=== PATIENT | male | born 1955 | race Caucasian/White ===

== ENCOUNTER → 2022-08-10 10:28 | Outpatient (CLI) | payer MEDICARE, SELFPAY ==
--- NOTE | ~2022-08-10 | XR_ITS ---
Lumbosacral Spine: AP and lateral views Clinical History: Pain Findings: 12 degree levoscoliosis noted. There is advanced facet arthropathy at L3-L4, L4-L5, L5-S1. There is mild degenerative disc narrowing at these levels. The intervertebral disc spaces are preserv ed. The sacroiliac joints are normally outlined. Impression: Moderate degenerative spondylosis at the lower lumbar spine, as detailed above. 12 degree levoscoliosis. Reviewed, dictated and finalized at location . Impression: Moderate degenerative spondylosis at the lower lumbar spine, as detailed above. 12 degree levoscoliosis.
== END ==
PROVIDERS: PCP Family Medicine; Visit Provider Nurse Practitioner Family
DX: M54.50 Low back pain, unspecified (principal); M47.816 Spondylosis without myelopathy or radiculopathy, lumbar region; M41.9 Scoliosis, unspecified; R20.0 Anesthesia of skin; R20.2 Paresthesia of skin
CPT/HCPCS: 72100

== ENCOUNTER 2022-10-13 10:01 | Outpatient (CLI) | payer MEDICARE, SELFPAY ==
--- NOTE | ~2022-10-13 | CT_ITS ---
Non-contrast Head CT History: Slurred speech COMPARISON: 02/28/2018 Technique: Axial non-contrast imaging of the brain was performed. Dose reduction technique was used on this scan by utilizing automated exposure control and iterative reconstruction technique. The dose -length product (DLP) was 681.00 mGy-cm. Findings: There is no evidence of intracranial hemorrhage, mass lesion, or acute infarct. Chronic le ft parietal lobe infarct noted.. The ventricles and subarachnoid spaces are normal in size. The singh varium appears normal. The visualized paranasal sinuses and mastoid air cells are clear. Impression: No acute abnormality. Chronic left parietal lobe infarct. Reviewed, dictated and finalized at location . Impression: No acute abnormality. Chronic left parietal lobe infarct.
== END 2022-10-13 10:02 | disposition home or self-care (01) ==
PROVIDERS: PCP Family Medicine; Visit Provider Nurse Practitioner Family
DX: I48.0 Paroxysmal atrial fibrillation (principal); R20.0 Anesthesia of skin; R53.1 Weakness; R47.81 Slurred speech; Z86.73 Personal history of transient ischemic attack (TIA), and cerebral infarction without residual deficits
CPT/HCPCS: 70450

== ENCOUNTER 2022-10-21 13:29 | Outpatient (CLI) | payer MEDICARE, SELFPAY ==
--- NOTE | ~2022-10-21 | MR_ITS ---
EXAMINATION: MR brain/brain stem wo con DATE: 10/21/2022 14:34 INDICATION: Other cerebral infarction. TECHNIQUE: Magnetic resonance imaging (MRI) of the brain and brainstem was performed without intraven ous contrast. COMPARISON: Head CT 10/13/2022, 02/28/2018 FINDINGS: There is an old infarct in left temporal parietal occipital region with old blood products and cortical calcifications. There are small infarcts in left frontoparietal region, likely subacute. There is no abnormal mass lesion. There are scattered areas of nonspecific increased T2-weighted sig nal intensity in the cerebral white matter. The ventricles are normal in size. There is mild mucosal thickening in the paranasal sinuses. The orbits are normal. The mastoid air cells are normal. IMPRESSION: 1. Small infarcts in left frontoparietal region, likely subacute. 2. Old infarct in left temporal parietal occipital region. 3. Mild nonspecific cerebral white matter disease, which likely represents chronic small vessel ische jasmyn disease. Reviewed, dictated and finalized at location A. IMPRESSION: 1. Small infarcts in left frontoparietal region, likely subacute. 2. Old infarct in left temporal parietal occipital region. 3. 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
== END 2022-10-21 13:30 | disposition home or self-care (01) ==
PROVIDERS: PCP Family Medicine; Visit Provider Nurse Practitioner Family
DX: I63.89 Other cerebral infarction (principal); R93.0 Abnormal findings on diagnostic imaging of skull and head, not elsewhere classified
CPT/HCPCS: 70551

== ENCOUNTER 2023-01-23 00:49 | Day surgery (SDC) | payer MEDICARE, SELFPAY ==
[2023-01-20 12:55] VITALS: BMI 33.7
[2023-01-23] VITALS (9 sets, daily range): BP systolic 141–160; BP diastolic 88–113; PULSE 78–98; RESP 13–19; TEMP 36.4; O2SAT 94–98; BMI 32.7
[2023-01-23 07:24] LABS: Basophils Percent Auto 0.4 % (0.2-1.2); Eosinophils Absolute Auto 0.2 K/mm3 (0-0.3); Eosinophils Percent Auto 4.7 % (0-4.4); Hematocrit 47.6 % (42.0-52.0); Hemoglobin 15.9 g/dL (14.0-18.0); Immature Granulocyte Absolute 0.01 K/mm3 (0.00-0.031); Immature Granulocyte Percent A 0.2 % (0-0.5); Lymphocytes Absolute Auto 1.15 K/mm3 (0.9-3.2); Lymphocytes Percent Auto 23.5 % (18.3-44.2); Mean Corpuscular HGB Conc 33.4 g/dl (32-36); Mean Corpuscular Hemoglobin 31.2 pg (26-34); Mean Corpuscular Volume 93.3 fl (80-100); Mean Platelet Volume 9.9 fl (7.4-10.4); Monocytes Absolute Auto 0.5 K/mm3 (0.1-0.6); Monocytes Percent Auto 9.2 % (2.6-8.5); Platelet Count Result 172 k/mm3 (150-375); Red Cell Distribution Width 11.8 % (11.5-14.5); White Blood Count 4.9 K/mm3 (4.5-10.0)
[2023-01-23 07:29] LABS: Prothrombin Time 13.6 Seconds (11.1-14.7)
[2023-01-23 07:33] LABS: Anion Gap 11 mmol/L (8-16); Blood Urea Nitrogen 15 mg/dL (9-20); Calcium 9.3 mg/dL (8.4-10.2); Carbon Dioxide 26 mmol/L (22-30); Chloride 98 mmol/L (98-107); Estimated CRCL calculation 110 ml/min; Estimated Glomerular Filt Rate > 60; Glucose 303 mg/dL (65-110); Potassium 4.4 mmol/L (3.4-5.0); Sodium 135 mmol/L (137-145)
--- NOTE | 2023-01-23 10:07 | WPDMODSED ---
Moderate Sedation Note-Pt Data Patient Data Diagnosis: atrial fibrillation /persistent left ventricular systolic dysfunction diabetes Present Complaint: upper extremity weakness and heaviness Procedure to be performed/Plan: left heart catheterization Allergies Allergy/AdvReac Type Severity Reaction Status Date / Time No Known Allergies Allergy Verified 01/23/23 07:26 Home Medications Medication Instructions Recorded Confirmed Type hydrochlorothiazide 25 mg tablet 25 mg PO DAILY #90 tabs 03/17/22 01/20/23 Rx glimepiride 1 mg tablet 1 mg PO BID #180 tabs 05/17/22 01/20/23 Rx rosuvastatin 40 mg tablet (Crestor) 40 mg PO DAILY #90 tabs 07/16/22 01/20/23 Rx gabapentin 100 mg capsule 100 mg PO QHS #90 caps 10/10/22 01/23/23 Rx empagliflozin 25 mg tablet 25 mg PO DAILY #90 tabs 01/08/23 01/23/23 Rx (Jardiance) lisinopril 10 mg tablet 10 mg PO DAILY #90 tabs 01/09/23 01/20/23 Rx semaglutide 0.25 mg or 0.5 mg (2 0.5 mg (0.736 mL) subcut WEEKLY #3 01/11/23 01/20/23 Rx mg/3 mL) subcutaneous pen injector mL (Ozempic) apixaban 5 mg tablet (Eliquis) 5 mg PO BID 01/23/23 01/23/23 History citalopram 40 mg tablet 40 mg PO DAILY 01/23/23 01/23/23 History Current Medications: Active Medications Sodium Chloride (Normal Saline Iv) 500 mls @ 100 mls/hr IV CONT .Q5H VICENTE Sedation/Anesthesia: No previous sedation/anesthesia problems (including family history). [facility] Past Medical History Medical History BMI 34.0-34.9,adult BMI 35.0-35.9,adult BMI 36.0-36.9,adult BMI over 35 Lumbar spondylosis Paroxysmal A-fib Penis disease Family History Family History Mother Hypertension Diabetes mellitus Father Hypertension Family history of lung cancer Sibling , copd No problems noted. Sibling No problems noted. 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[employer], [employer]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 Gender identity (if verbalized by the patient): Male Spiritual care concerns: No Mod Sed Physical Exam Physical Exam Pre Procedural Exam: Normal: Neck, Throat, Airway, Lungs, Heart Size, Heart Rate, Neuro Exam and Extremities and Variation: Appearance ( overweight white male no apparent distress) and Heart Rhythm ( irregularly irregular) Hours since solid foods: 12 Hours since liquid intake: 12 Mallampati Classification: class II Internal Medicine - PN: Obj Da Vital Signs Vital Signs: Vital Signs - 24 hr 01/23/23 07:11 Temperature 36.4 C L Pulse Rate 98 Respiratory Rate 16 Blood Pressure 141/97 H Pulse Oximetry 98 Oxygen Delivery Room Air Meds/Results Medications: Active Medications Generic Name Dose Route Start Last Admin Trade Name Christopherq PRN Reason Stop Dose Admin Sodium Chloride 500 mls @ 100 mls/hr 01/23/23 07:00 Normal Saline Iv IV CONT .Q5H VICENTE Labs 01/23/23 07:13 01/23/23 07:13 Labs: Laboratory Results - last 24 hr 01/23/23 07:13 WBC 4.9 RBC 5.10 Hgb 15.9 Hct 47.6 MCV 93.3 MCH 31.2 MCHC 33.4 RDW 11.8 Plt Count 172 MPV 9.9 Immature Gran % (Auto) 0.2 Neut % (Auto) 62.0 Lymph % (Auto) 23.5 [place] % (Auto) 9.2 H Eos % (Auto)
--- NOTE | 2023-01-23 10:29 | WPDCARDPROC ---
Cardiac Cath Procedure Note Date of procedure:: 01/23/23 Performing physician:: Abdi East MD Indication:: left ventricular systolic dysfunction atrial fibrillation Brief clinical history:: this is a 67-year-old man with atrial fibrillation that was identified several months ago as an outpatient. He appears to be asymptomatic with respect to his arrhythmia. Further evaluation with stress testing suggested evidence of LV systolic dysfunction and for this reason angiography has been recommended Procedure Procedure performed:: left ventriculogram coronary angiogram Angio-Seal to right femoral artery Sedation/Medication given:: fentanyl 50 mg Versed 2 mg case start time 10:12 a.m. case end time 10:25 a.m. sedation provided by Corinne Galvez RN, trained observer Access site:: right femoral artery Estimated blood loss:: 20 cc Procedure note:: patient was brought to the cardiac catheterization lab in the postabsorptive state where the right femoral triangle was prepared and draped usual fashion. Anesthesia was provided with 1% lidocaine infiltrated locally. Using the modified Seldinger technique a 5 Surinamese sheath was placed into the femoral artery after this left heart catheterization was carried out. A 5 [place]amese angled pigtail catheter was used to measure left-sided hemodynamics and inject LV g in the REED projection. After this the coronary arteries were injected using standard FL4 and JR4 diagnostic catheters. The cineangiograms were then reviewed and the case was terminated. Angiogram was performed to the femoral artery through the sheath after which a 6 [place]amese Angio-Seal device was deployed to provide good hemostasis. 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 Findings:: Hemodynamics: Central aortic pressure is 125 over 82 left ventricle 125 over 10-15 there is no gradient on pullback across the aortic valve. Left ventricle: The LV is normal in size all segments appear to contract appropriately the global ejection fraction is 50-55% by visual estimation the left main coronary artery is widely patent the left anterior descending is a medium caliber artery extending down to the apex. There are 3 very small diagonal branches. The LAD and its branches are angiographically free of disease. The circumflex is a medium caliber artery giving rise to the marginal branches the circumflex system is smooth and angiographically normal in appearance the right coronary artery is large in caliber and dominant to the posterior circulation there is no angiographic abnormality with the vessel is smooth and free of disease Conclusion:: 1. right coronary dominant circulation with no angiographic abnormalities 2. preserved left ventricular systolic function in contrast to noninvasive data 3. persistent atrial fibrillation Abdi East MD FACC Assessment and Plan Assessment and plan (1) Paroxysmal A-fib: Code(s): I48.0 - Paroxysmal atrial fibrillation Status: Acute
[2023-01-23] MEDS: hydroCHLOROthiazide 25 MG TABLET PO (11:43)
[2023-01-23] MEDS: lisinopriL 10 MG TABLET PO (11:43)
== END 2023-01-23 13:32 | disposition home or self-care (01) ==
PROVIDERS: PCP Family Medicine; Visit Provider Specialist
PROC: 4A023N7 Measurement of Cardiac Sampling and Pressure, Left Heart, Percutaneous Approach (ICD-10-PCS; CPT 93452; principal; 2023-01-23 08:30)
DX: R93.1 Abnormal findings on diagnostic imaging of heart and coronary circulation (principal); I48.0 Paroxysmal atrial fibrillation; I10 Essential (primary) hypertension; R53.83 Other fatigue; Z79.01 Long term (current) use of anticoagulants; I51.9 Heart disease, unspecified; E11.9 Type 2 diabetes mellitus without complications; E78.5 Hyperlipidemia, unspecified
CPT/HCPCS: 36415; 80048; 85025; 85610; 93458; A9270; C1760; C1887; C1894; G0269; J1644; J2250; J3010; J7040

== ENCOUNTER 2023-03-20 00:29 | Day surgery (SDC) | payer MEDICARE, SELFPAY ==
[2023-03-17 12:52] VITALS: BMI 32.8
[2023-03-20] VITALS (9 sets, daily range): BP systolic 112–136; BP diastolic 67–96; PULSE 68–88; RESP 16–20; O2SAT 97–99; BMI 34.9
--- NOTE | 2023-03-20 08:30 | ECG_ITS ---
Measurements Intervals [place] Rate: 84 P: [place]: 0 QRS: -46 QRSD: 103 T: -34 QT: 372 QTc: 442 Interpretive Statements ATRIAL FIBRILLATION LEFT ANTERIOR FASCICULAR BLOCK NONSPECIFIC T-WAVE ABNORMALITY- INFERIOR LEADS ABNORMAL ECG NO PREVIOUS ECG AVAILABLE FOR COMPARISON Electronically Signed On 03-20-2023 8:35:47 PHONE SPECIALIST by Zeb Fuchs D.O.
[2023-03-20 09:00] LABS: Blood Urea Nitrogen 15 mg/dL (9-20); Calcium 9.3 mg/dL (8.4-10.2); Carbon Dioxide 30 mmol/L (22-30); Estimated CRCL calculation 113 ml/min; Estimated Glomerular Filt Rate > 60; Glucose 242 mg/dL (65-110); Magnesium 1.7 mg/dL (1.6-2.3); Sodium 135 mmol/L (137-145)
[2023-03-20 09:05] LABS: Potassium 4.4 mmol/L (3.4-5.0)
[2023-03-20 09:07] LABS: Anion Gap 8 mmol/L (8-16); Chloride 97 mmol/L (98-107)
[2023-03-20] MEDS: APIXABAN 5 MG TABLET PO (09:07)
[2023-03-20] MEDS: SODIUM CHLORIDE 0.9% IV 1,000 ML 30 ML IV CONT (09:08)
--- NOTE | 2023-03-20 09:20 | PM.IMHP ---
H&P: HPI History of Present Illness Date/Time: 03/20/23 09:20 Chief Complaint: generalized fatigue Narrative: this is a 67-year-old man with a history of persistent atrial fibrillation admitted today as an outpatient for an attempt at electrical cardioversion. He was 1st found to have atrial fibrillation in September of 2022 during a routine visit with the PCP. He was essentially asymptomatic at the time of the diagnosis. I saw the patient in referral in November and again he was in asymptomatic rate controlled atrial fibrillation. I anticoagulated him at that time with apixaban and discontinued aspirin. An echocardiogram interestingly demonstrated evidence of moderate LV systolic dysfunction with the ejection fraction of 30-35%. Following that he was brought to the manager cath lab for cardiac catheterization to ensure that he did not have ischemic LV dysfunction. That procedure demonstrated no evidence of coronary disease and left ventricular systolic function by LV g looked normal. His comorbidities include hypertension diabetes and dyslipidemia. An attempt at restoring sinus rhythm electrically was recommended and he is admitted today electively for that procedure. Review of Systems Constitutional: Constitutional: Reports fatigue Eyes: Eyes: Reports no additional eye complaints ENT: Reports system reviewed and no additional complaints, except as documented Cardiovascular: Cardiovascular: Reports no additional cardiovascular complaints Respiratory: Respiratory: Reports no additional respiratory complaints Gastrointestinal: Gastrointestinal: Reports no additional gastrointestinal complaints Genitourinary: Genitourinary: Reports no additional male genitourinary complaints Musculoskeletal: Musculoskeletal: Reports no additional musculoskeletal complaints Integumentary/Breasts: Skin/Breast: Reports system reviewed and no additional complaints, except as docu Neurologic: Reports system reviewed and no additional complaints, except as documented [facility] Past Medical History Medical History BMI 34.0-34.9,adult BMI 35.0-35.9,adult BMI 36.0-36.9,adult BMI over 35 Lumbar spondylosis Paroxysmal A-fib Penis disease Family History Family History Mother Hypertension Diabetes mellitus Father Hypertension Family history of lung cancer Sibling , copd Sibling No problems noted. Social History Social History Social History: none Smoking status: Never smoker Second hand tobacco smoke exposure: Yes Alcohol intake: former Drinks per week: 10 Substance use: never Substance use type: does not use Do You Feel Safe in your Home?: Yes Lack of Transportation: No Lack of Food: Never True Current Housing: I Have Housing Concerned About Future Housing: No Difficulty Paying Gas/Electric Bills: No Difficulty Paying for Meds: No Currently Unemployed: No Education: High School Diploma/GED Difficulty w/ Childcare or Family Care: No Living arrangements: alone Occupation/Education: retired 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[employer], [employer]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 Gender identity (if verbalized by the patient): Male Spiritual care concerns: No Meds Home Medications and Allergies Home Medications Medication Instructions Recorded Confirmed Type rosuvastatin 40 mg tablet (Crestor) 40 mg PO DAILY #90 tabs 07/16/22 03/17/23 Rx gabapentin 100 mg capsule 100 mg PO QHS #90 caps 10/10/22 03/17/23 Rx lisinopril 10 mg tablet 10 mg PO DAILY #90 tabs 01/09/23 03/17/23 Rx semaglutide 0.25 mg or 0.5 mg (2 0.5 mg (0.736 mL) subcut WEEKLY #3 01/11/23 03/17/23 Rx mg/3 mL) subcutaneous pen injector mL (Ozempic) apixaban 5 mg tablet (Eliquis) 5 mg PO BID 01/23/23 03/17/23 History glimepiride 1 mg ta
--- NOTE | 2023-03-20 09:24 | WPDMODSED ---
Moderate Sedation Note-Pt Data Patient Data Diagnosis: persistent atrial fibrillation Present Complaint: generalized fatigue Procedure to be performed/Plan: DC cardioversion Allergies Allergy/AdvReac Type Severity Reaction Status Date / Time No Known Allergies Allergy Verified 03/20/23 08:30 Home Medications Medication Instructions Recorded Confirmed Type rosuvastatin 40 mg tablet (Crestor) 40 mg PO DAILY #90 tabs 07/16/22 03/17/23 Rx gabapentin 100 mg capsule 100 mg PO QHS #90 caps 10/10/22 03/17/23 Rx lisinopril 10 mg tablet 10 mg PO DAILY #90 tabs 01/09/23 03/17/23 Rx semaglutide 0.25 mg or 0.5 mg (2 0.5 mg (0.736 mL) subcut WEEKLY #3 01/11/23 03/17/23 Rx mg/3 mL) subcutaneous pen injector mL (Ozempic) apixaban 5 mg tablet (Eliquis) 5 mg PO BID 01/23/23 03/17/23 History glimepiride 1 mg tablet 1 mg PO BID #180 tabs 02/07/23 03/17/23 Rx hydrochlorothiazide 25 mg tablet 25 mg PO DAILY #90 tabs 02/07/23 03/17/23 Rx empagliflozin 25 mg tablet 25 mg PO DAILY #90 tabs 03/16/23 03/17/23 Rx (Jardiance) citalopram 40 mg tablet 40 mg PO DAILY 03/17/23 03/17/23 History Current Medications: Active Medications Sodium Chloride (Normal Saline Iv) 1,000 mls @ 30 mls/hr IV CONT .Q24H VICENTE Last Admin: 03/20/23 09:08 Dose: 30 mls/hr Sedation/Anesthesia: No previous sedation/anesthesia problems (including family history). [facility] Past Medical History Medical History BMI 34.0-34.9,adult BMI 35.0-35.9,adult BMI 36.0-36.9,adult BMI over 35 Lumbar spondylosis Paroxysmal A-fib Penis disease Family History Family History Mother Hypertension Diabetes mellitus Father Hypertension Family history of lung cancer Sibling , copd Sibling No problems noted. 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, [employer]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 Gender identity (if verbalized by the patient): Male Spiritual care concerns: No Mod Sed Physical Exam Physical Exam Pre Procedural Exam: Normal: Neck, Throat, Airway, Lungs, Heart Size, Heart Rate, Neuro Exam and Extremities and Variation: Appearance ( overweight gentleman no distress) and Heart Rhythm ( irregularly irregular) Hours since solid foods: 12 Hours since liquid intake: 12 Mallampati Classification: class II Internal Medicine - PN: Obj Da Vital Signs Vital Signs: Vital Signs - 24 hr 03/20/23 08:31 Pulse Rate 84 Respiratory Rate 17 Blood Pressure 136/86 Pulse Oximetry 97 Oxygen Delivery Room Air Meds/Results Medications: Active Medications Generic Name Dose Route Start Last Admin Trade Name Freq PRN Reason Stop Dose Admin Sodium Chloride 1,000 mls @ 30 mls/hr 03/20/23 08:30 03/20/23 09:08 Normal Saline Iv IV CONT 30 mls/hr .Q24H VICENTE Administration Labs 03/20/23 08:41 Labs: Laboratory Results - last 24 hr 03/20/23 08:41 Sodium 135 L Potassium 4.4 Chloride 97 L Carbon Dioxide 30 Anion Gap 8 BUN 15 Creatinine 0.70 Estim Creat Clear Calc 113 Estimated GFR > 60 Glucose 242 H Calcium 9.3 Magnesium 1.7 ASA Classification/Sedation ASA Cla
--- NOTE | 2023-03-20 09:33 | WPDCARDPROC ---
Cardiac Cath Procedure Note Date of procedure:: 03/20/23 Performing physician:: Abdi East MD Indication:: persistent atrial fibrillation Brief clinical history:: this is a 67-year-old man with atrial fibrillation of uncertain chronicity, at least for several months according to the records. He is known to have hypertension and non insulin-dependent diabetes. An attempt at restoring sinus rhythm electrically has been scheduled for today. He is been anticoagulated with apixaban. Procedure Procedure performed:: DC cardioversion Sedation/Medication given:: intravenous propofol in aliquots total dosage of 100 mg Estimated blood loss:: 0 Procedure note:: patient was brought to the cardiac catheterization lab holding area in the postabsorptive state. He had IV access in the right upper extremity and defibrillator patches placed in AP position. He was then sedated using aliquots of propofol. A total dosage of 100 mg provided excellent sedation. He was then DC counter shocked with 200 joules x1 attempt in synchronized fashion which restored sinus rhythm. Findings:: As above Conclusion:: successful uncomplicated DC cardioversion terminating atrial fib, restoring sinus rhythm using 200 joules x1 shock. Adbi East MD [facility]
--- NOTE | 2023-03-20 10:00 | ECG_ITS ---
Measurements Intervals [place] Rate: 71 P: 43 [place]: 189 QRS: -42 QRSD: 83 T: -16 QT: 392 QTc: 428 Interpretive Statements SINUS RHYTHM LEFT AXIS DEVIATION DELAYED PRECORDIAL R/S TRANSITION BORDERLINE T WAVE ABNORMALITY- INFERIOR LEADS BASELINE ARTIFACT- II, III, AVL, AVF BORDERLINE ECG COMPARED TO ECG 03/20/2023 08:30:49 SINUS RHYTHM NOW PRESENT LEFT-AXIS DEVIATION NOW PRESENT Electronically Signed On 03-20-2023 11:17:39 SENIOR ELECTRONICS ENGINEER by Zeb Fuchs D.O.
[2023-03-20] MEDS: FLECAINIDE ACETATE 100 MG TABLET PO (10:48)
== END 2023-03-20 11:01 | disposition home or self-care (01) ==
PROVIDERS: PCP Family Medicine; Visit Provider Specialist
PROC: 5A2204Z Restoration of Cardiac Rhythm, Single (ICD-10-PCS; principal; 2023-03-20 10:00)
DX: I48.0 Paroxysmal atrial fibrillation (principal); N48.9 Disorder of penis, unspecified; R93.1 Abnormal findings on diagnostic imaging of heart and coronary circulation; Z79.85 Long-term (current) use of injectable non-insulin antidiabetic drugs; Z79.01 Long term (current) use of anticoagulants; Z79.84 Long term (current) use of oral hypoglycemic drugs; Z80.1 Family history of malignant neoplasm of trachea, bronchus and lung
CPT/HCPCS: 36415; 80048; 83735; 92960; A9270; J2704; J7030

== ENCOUNTER 2023-06-16 13:23 | Outpatient (CLI) | payer MEDICARE, SELFPAY ==
--- NOTE | 2023-06-16 13:34 | ECHO_ITS ---
Patient Info Name: Javier Saunders Age: 68 years : 1955 Gender: Male Ht: 71 in Wt: 250 lbs BSA: 2.42 m2 HR: 63 bpm BP: 133 / 81 mmHg Technical Quality: Fair Exam Date: 06/16/2023 1:46 PM Exam Location: Echo Lab Patient Status: Outpatient Admit Date: 06/16/2023 Staff Ordering Physician: Fatou Salter MD Supervisor Customer Services: Alexsander Hanson RDCS Attending Provider: Fatou Salter MD Exam Type: CA echo dop bubble study w con Study Info Indications - History of Stroke I48.1 - Persistent atrial fibrillation Complete two-dimensional, color flow and Doppler transthoracic echocardiogram is performed. Summary 1. Complete two-dimensional, color flow and Doppler transthoracic echocardiogram is performed. 2. Definity contrast administered improved wall motion interpretation. 3. Left ventricular chamber dimension is normal. 4. Left ventricular systolic function is normal, estimated at 65-70%. 5. The left ventricular diastolic function is grade I diastolic dysfunction. 6. E/e' 7 is not elevated. 7. There is mild aortic valve sclerosis. 8. No pulmonary hypertension, estimated pulmonary arterial systolic pressure is 26 mmHg. 9. There is trace pulmonic regurgitation. Left Ventricle E/e' 7 is not elevated. Definity contrast administered improved wall motion interpretation. Left ventricular chamber dimension is normal. Left ventricular systolic function is normal, estimated at 65-70%. The left ventricular diastolic function is grade I diastolic dysfunction. Right Ventricle Right ventricular chamber dimension is normal. Right ventricular systolic function is normal. Left Atria Left atrial chamber dimension is normal. Right Atria Right atrial chamber dimension is normal. Atrial Septum Agitated saline injection with and without valsalva maneuver opacified right side cardiac chambers without shunt to left side cardiac chambers. Intact interatrial septum visualized by 2D and agitated saline imaging. Aortic Valve The aortic valve is trileaflet. There is mild aortic valve sclerosis. There is no aortic valve stenosis. There is no aortic valve regurgitation. Pulmonic Valve There is trace pulmonic regurgitation. Mitral Valve There is no mitral valve stenosis. There is no mitral valve regurgitation. Tricuspid Valve There is no tricuspid valve regurgitation. No pulmonary hypertension, estimated pulmonary arterial systolic pressure is 26 mmHg. Pericardium/Pleural There is no pericardial effusion. Inferior Vena Cava Normal inferior vena cava with >50% collapse upon inspiration consistent with normal right atrial pressure, 5 mmHg. Aorta The aortic root size at the sinus of Valsalva is normal. Left Ventricular Outflow Tract Name Value Normal LVOT 2D LVOT Diameter 2.1 cm LVOT Doppler LVOT Peak Gradient 4 mmHg LVOT Mean Gradient 2 mmHg LVOT VTI 15 cm LVOT VTI/AV VTI Ratio 0.8 LVOT Stroke Volume 54 ml LVOT CO 3.5 l/min LVOT CI 1.5 l/min/m2 Pulmonic Valve
[2023-06-16] MEDS: PERFLUTREN LIPID MICROSPHERES 1.5 ML VIAL DILUTED TO 10 ML TOTAL VOLUME IV PUSH (14:35)
--- NOTE | 2023-07-10 09:19 | IVDEFINITY ---
Prior to administration of IV Definity the patient was educated on the risks and benefits of the imaging enhancing agent including potential adverse side effects. The patient verbalized understanding. Allergies were verified. No exclusion criteria were identified and at least one of the following inclusion criteria were met: 1) physician request, 2) patient technically difficult to image (per the [place] [employer] guidelines of two or more segments not discernable within the apical view), or 3) questionable left ventricular function. ?
== END 2023-06-16 13:24 | disposition home or self-care (01) ==
LOC: ANHCARD 13:24
PROVIDERS: PCP Family Medicine; Visit Provider Student in an Organized Health Care Education/Training Program
DX: I48.91 Unspecified atrial fibrillation (principal); Z86.73 Personal history of transient ischemic attack (TIA), and cerebral infarction without residual deficits
CPT/HCPCS: 96375; C8929; Q9957

== ENCOUNTER 2023-06-20 07:35 | Outpatient (CLI) | payer MEDICARE, SELFPAY ==
--- NOTE | ~2023-06-20 | CT_ITS ---
CT ANGIOGRAM NECK AND HEAD History: Cerebral infarction. Technique: Axial noncontrast imaging of the brain was performed. Serial spiral axial images through t he head and neck were then obtained during arterial phase IV injection of 100 cc of Omnipaque 350. 3- D postprocessing and MIP images were then reconstructed on the remote workstation. Dose reduction jerry hnique was used on this scan by utilizing automated exposure control and iterative reconstruction jerry hnique. The dose-length product (DLP) was 1804.61 mGy-cm. CTA neck findings: Bilateral vertebral arteries are patent. Bilateral common carotid, internal carot id, external carotid arteries are patent. There is large mixed soft and calcified plaque at the right proximal internal carotid artery, with 40% stenosis. There is mixed soft and calcified plaque at the proximal left internal carotid artery, with possible very focal dissection, and focal stenosis of ap proximately 75% The proximal right internal carotid artery demonstrates 40% stenosis relative to the normal distal artery lumen diameter. The proximal left internal carotid artery demonstrates 75% steno sis relative to the normal distal artery lumen diameter. CTA head findings: Distal internal carotid arteries, middle cerebral arteries, and anterior cerebral arteries are patent. Distal vertebral arteries, basilar artery, and posterior cerebral arteries are p atent. No large vessel occlusion. No stenosis or aneurysm. Axial noncontrast imaging of the brain demonstrates no acute infarct, acute intracranial hemorrhage, or mass lesion. There are probable chronic infarct in the left posterior temporal/parietal region. Ve ntricles and subarachnoid spaces are otherwise essentially unremarkable. No mass effect or midline sh ift. Paranasal sinuses and mastoid air cells are clear. Impression: Focal high-grade stenosis (75% in degree) disease at the proximal left internal carotid artery with s uspected very focal dissection in this region. 40% stenosis of the proximal right internal carotid artery. Reviewed, dictated and finalized at location . Impression: Focal high-grade stenosis (75% in degree) disease at the proximal left internal carotid artery with suspected very focal dissection in this region. 40% stenosis of the proximal right internal carotid artery.
== END 2023-06-20 07:36 | disposition home or self-care (01) ==
PROVIDERS: PCP Family Medicine; Visit Provider Student in an Organized Health Care Education/Training Program
DX: I65.23 Occlusion and stenosis of bilateral carotid arteries (principal)
CPT/HCPCS: 70496; 70498; Q9967

== ENCOUNTER 2024-04-02 14:10 | Outpatient (CLI) | payer MEDICARE, SELFPAY ==
--- NOTE | ~2024-04-02 | XR_ITS ---
EXAMINATION: XR foot RT min 3V DATE: 04/02/2024 14:26 INDICATION: Chronic right foot ulcer. TECHNIQUE: 3 views of right foot were obtained. COMPARISON: None. FINDINGS: Alignment is normal. No fracture. There is severe osteoarthritis of first metatarsophalange al joint and mild osteoarthritis of some of the midfoot joints and interphalangeal joints. There are enthesophytes at the posterior and plantar aspects of calcaneal tuberosity. IMPRESSION: 1. Polyarticular osteoarthritis. Reviewed, dictated and finalized at location A. [facility]
--- OUTSIDE RECORDS SUMMARY | 2024-04-02 14:48 | XMS_ITS | Clinical Summary ---
Author Organization [facility] [address] Address [address] [place] [id number] Care Team Providers Care Revival Clerk Name Role Phone Yimi Vogel MD Primary Care Provider [phone] Abdi East MD Unavailable [phone] Allergies Active Allergy Reactions Criticality Noted Date Comments Sitagliptin Unknown 11/09/2022 Medications citalopram (CeleXA) 40 mg tablet Take 1 tablet (40 mg total) by mouth daily Takes 1/2 Tablet By Mouth Daily 3 Active hydroCHLOROthia zide (HYDRODIURIL) 25 mg tablet Take 1 tablet (25 mg total) by mouth daily 3 Active glimepiride (AMARYL) 1 mg tablet Take 1 tablet (1 mg total) by mouth 2 (two) times a day 3 Active rosuvastatin (CRESTOR) 40 mg tablet Take 1 tablet (40 mg total) by mouth daily 3 Active Ozempic 0.25 mg or 0.5 mg (2 mg/3 mL) pen injector injection 0.25 mg by abdominal subcutaneous route once a week 3 Active Jardiance 25 mg tablet Take 1 tablet (25 mg total) by mouth daily 3 Active gabapentin (NEURONTIN) 100 mg capsule Take 1 capsule (100 mg total) by mouth nightly Takes 1 capsule at night 3 Active lisinopriL (PRINIVIL,ZESTR IL) 10 mg tablet Take 1 tablet (10 mg total) by mouth daily Active aspirin 81 mg chewable tablet Take 1 tablet (81 mg total) by mouth daily 30 tablet 08/23/19 25 Active clopidogreL (PLAVIX) 75 mg tablet Take 1 tablet (75 mg total) by mouth daily 30 tablet 08/28/19 25 Active UNABLE TO FIND Take 1 each by mouth 2 (two) times a day Med Name: Heal N Soothe Supplement (Contains 60 mg Tumeric) Active multivit with min-folic acid 200 mcg tablet,chewable Take 2 tablet/chew tab by mouth daily One-A-Day VitaCraves Active cholecalciferol (VITAMIN D-3) 2000 unit tablet Take 2 tablets (4,000 Units total) by mouth daily Active Eliquis 5 mg tablet TAKE 1 TABLET(5 MG) BY MOUTH TWICE DAILY 180 tablet 1 4 Active flecainide (TAMBOCOR) 100 mg tablet TAKE 1 TABLET BY MOUTH EVERY 12 HOURS 180 tablet 1 4 Active Active Problems Problem Noted Date Diagnosed Date Primary hypertension 02/08/2024 Assessment & Plan (02/08/2024 2:40 PM SERVICE GIRL): Impression: Chronic stable. Plan: Continue hydrochlorothiazide, lisinopril, Carotid stenosis, left 08/23/2023 Assessment & Plan (02/08/2024 2:37 PM SERVICE GIRL): Impression: Patient is status post left TCAR and continues to recover well. Patient remains asymptomatic. Carotid duplex reveals patent stents and a patent right internal carotid artery. Plan: Continue ongoing risk factor modifications. -continue aspirin, Plavix and Eliquis. -patient to follow-up in 6 months for re-evaluation with repeat carotid duplex. Encouraged patient make sooner appointment if he develops any symptoms of stroke or TIA symptoms. Patient voices understanding. Assessment & Plan (10/04/2023 9:32 AM CDT): Left TCAR procedure 09/14/23. Recovering well. Incision is healing well. No hematoma or ecchymosis. He has no concerns today. Plan: continue asa and plavix. Follow up in 3 months for routine carotid duplex. Mixed hyperlipidemia 08/02/2023 Assessment & Plan (02/08/2024 2:39 PM SERVICE GIRL): Impression: Chronic and stable. Plan: Continue rosuvastatin. Assessment & Plan (08/25/2023 1:04 PM CDT): Stable continue Crestor 40 mg. Assessment & Plan (08/02/2023 9:35 AM CDT): Stable continue Crestor 40 mg Paroxysmal atrial fibrillation (CMS/HCC) 023 Assessment & Plan (02/08/2024 2:37 PM SERVICE GIRL): Impression: Chronic and currently rate controlled. Plan: Continue Eliquis Assessment & Plan (08/25/2023 1:03 PM CDT): Stable continue Eliquis 5 mg. Assessment & Plan (08/02/2023 9:35 AM CDT): Stable continue Eliquis 5 mg. Other thrombophilia 11/09/2022 Disorder of vein 07/01/2011 Arthralgia of shoulder 05/09/2011 Resolved Problems Problem Noted Date Diagnosed Date Resolved Date Carotid stenosis, symptomati c, with infarction 09/14/2023 02/08/2024 Stenosis of left carotid artery 08/02/2023 02/08/2024 Assessment & Plan (08/25/2023 1:03 PM CDT): Moderate 50-69% stenosis of the left ICA with stroke on MRI in the MCA distribution. Discussed management of symptomatic left ICA stenosis including CEA versus TCAR. I have recommended a left TCAR, risks benefits and alternatives discussed, risks including bleeding, infection, nerve injury, stroke, need further surgery. He wished proceed. Start ASA Plavix and statin therapy. Continue Eliquis for now, hold Eliquis 48-72 hours prior to surgery. Assessment & Plan (08/02/2023 9:57 AM CDT): Moderate left ICA stenosis with per patient recent left-sided stroke. Unclear if this is in the MCA distribution. I have requested his MRI and CTA head and neck imaging from [facility]. Continue risk factor modification with ASA statin therapy and good blood pressure control. Pending evaluation of his CT and MRI he may need left ICA TCAR versus CEA. We will follow up in 2-3 weeks Encounters Date Type Department Care Team Description 02/07/2024 9:45 AM SERVICE GIRL Office Visit [facility] Vascular at [address] [place] [address] Jody Simon NP Carotid stenosis, left (Primary Dx); Mixed hyperlipidemia; Primary hypertension; Paroxysmal atrial fibrillation (CMS/HCC) (HCC) 02/07/2024 Orders Only [facility] Vascular and Vein Surgery [address] [facility] [place] [id number] Kesha Longoria MD Aftercare following surgery of the circulatory system (Primary Dx); Stenosis of left carotid artery 01/29/2024 10:00 AM SERVICE GIRL Ancillary Procedure [facility] Vascular and Vein Surgery at [address] [place] [address] Aftercare following surgery of the circulatory system from Last 3 Months Surgical History Surgery Date Site/Laterality Comments SINUS SURGERY ADENOIDECTOMY A long time ago. Medical History Medical History Date Comments Atrial fibrillation (CMS/HCC) (HCC) Neuropathy (CMS/HCC) Fatigue Hypertension Type 2 diabetes mellitus (HCC) Stroke (HCC) Had Perioral Num bness Carotid stenosis 60% Blockage (L eft) Hyperlipidemia Family History Medical History Relation Name Comments Cancer Father Heart failure Mother Relation Name Status Comments Father Mother Social History Tobacco Use Types Packs/Day Years Used Date Smoking Tobacco: Never Smokeless Tobacco: Never Tobacco Cessation:Counseling Given: Not Answered [facility] Utilities Answer Date Recorded In the past 12 months has [employer], gas, oil, or water [employer] threatened to shut off services in your home? No 09/15/2023 Social Connection and Isolat ion Panel [NHANES] Answer Date Recorded In a typical week, how many times do you talk on the phone with family, friends, or neighbors? More than three times a week 09/15/2023 How often do you get togethe r with friends or relatives? More than three times a week 09/15/2023 How often do you attend chur ch or sabianist services? Never 09/15/2023 Do you belong to any clubs o r organizations such as latter day groups, unions, fraternal or athletic groups, or school groups? No 09/15/2023 How often do you attend meet ings of the clubs or organizations you belong to? Never 09/15/2023 Are you , , di vorced, , never , or living with a partner? 09/15/2023 AUDIT-C Answer Date Recorded Q1: How often do you have a drink containing alcohol? Never 09/14/2023 Q2: How many drinks containi ng alcohol do you have on a typical day when you are drinking? Patient does not drink Q3: How often do you have si x or more drinks on one occasion? Never 09/14/2023 Overall Financial Resource Strain (CARDIA) Answe r Date Recorded How hard is it for you to pa y for the very basics like food, housing, medical care, and heating? Not hard at all 09/15/2023 Hunger Vital Sign Answer Date Recorded Within the past 12 months, y ou worried that your food would run out before you got the money to buy more. Never true 09/15/19 24 Within the past 12 months, t he food you bought just didn't last and you didn't have money to get more. Never true 09/15/2023 PRAPARE - Transportation Answer Date Re corded In the past 12 months, has l ack of transportation kept you from medical appointments or from getting medications? No 09/03 In the past 12 months, has l ack of transportation kept you from meetings, work, or from getting things needed for daily living? No 09/15/2023 Housing Stability Vital Sign Answer Sawyer e Recorded In the last 12 months, was t here a time when you were not able to pay the mortgage or rent on time? No 09/15/2023 In the past 12 months, how m any times have you moved where you were living? 0 09/15/2023 At any time in the past 12 m [facility], were you homeless or living in a [facility] (including now)? No 09/15/2023 Personal Safety Answer Date Recorded Have you ever been in or are you currently in a harmful physical or emotional relationship or is someone making you feel afraid or unsafe? Denies 09/14/2023 Sex and Gender Information Value Date Recorded Sex Assigned at Not on file Legal Sex Male 8:58 AM SERVICE GIRL Gender Identity Not on file Sexual Orientation Not on file Obstetrics History Last Filed Vital Signs Vital Sign Reading Time Taken Comments Blood Pressure 113/72 02/07/2024 9:48 AM SERVICE GIRL Pulse 81 02/07/2024 9:48 AM SERVICE GIRL Temperature 36.6 ??C (97.8 ??F) 09/15/2023 7:00 AM CD T Respiratory Rate 17 09/15/2023 10:33 AM CDT Oxygen Saturation 98% 02/07/2024 9:48 AM SERVICE GIRL Inhaled Oxygen Concentration - - Weight 105.2 kg (232 lb) 02/07/2024 9:48 AM SERVICE GIRL Height 180.3 cm (5' 11 ) 02/07/2024 9:48 AM SERVICE GIRL Body Mass Index 32.36 02/07/2024 9:48 AM SERVICE GIRL Plan of Treatment Health Maintenance Due Date Last Done Comments Albumin Creatinine Ratio, Urine 1955 Colon Cancer Screening-Colonoscopy 1955 Depression Screening 1955 Hepatitis C Screening 1955 Dilated Eye Exam 1955 Foot Exam 1955 Pneumococcal vaccine 65+ (1 of 2 - PCV) 05/29/1959 DTaP/Tdap/Td Vaccine (1 - Tdap) 1964 Hepatitis B Screening 05/29/1971 Well Visit 65+ 2018 Zoster Vaccine (2 of 2) 07/25/2022 05/30/2022 Covid-19 Vaccine (4 - 2023-2 5 season) 2023 03/02/2021, 06/02/2020, 05/12/2020 Influenza Vaccine (#1) 2023 , 01/02/2021, 01/13/2015, Additional history exists Lipid Panel 11/10/2023 11/09/2022, 10/16/2018 Hemoglobin A1C 03/02/2024 09/01/2023 Fall Risk Assessment 09/14/2024 09/15/2023 eGFR 09/14/2024 09/15/2023, 09/03, 09/01/2023 Medical Devices Implanted Type Area Soa Architect Device Identifier Shelf Expiration Date Model / Serial / Lot [employer] Ayushroute Uber Flex 9mm .078in 40mm 57cm Delivery System Angle Tip [id number]-[id number] - [id number] Implanted:Qty: 1 on 09/14/2023 by Kesha Longoria MD at [facility] Left: Common Carotid Artery [employer] [id number] 12/03/2025 SR-0940-[id number] S / / [id number] Procedures Procedure Name Priority Date/Time Associated Diagnosis Comments US CAROTIDS DUPLEX BILATERAL Schedule Routine, Read Routine (OP Routine) 01/29/2024 10:23 AM SERVICE GIRL Aftercare following surgery of the circulatory system EGFR Routine 09/15/2023 2:17 AM CDT HEMOGLOBIN A1C Routine 09/01/2023 2:20 PM CDT Encounter for pre-operative laboratory testing Diabetes mellitus due to underlying condition with unspecified complications (HCC) POCT LIPID PANEL Routine 11/09/2022 11:4 8 AM CDT Lipid screening from Last 3 Months or Most Recently Relevant to Health Maintenance Results * US Carotids Duplex Bilateral (01/29/2024 10:23 AM SERVICE GIRL) Anatomical Region Laterality Modality Vascular Bilateral Ultrasound 01/29/2024 9:59 AM SERVICE GIRL Narrative 01/29/2024 1:45 PM SERVICE GIRL Vascular & Vein Surgery [address] 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 INDICATIONS: S/P Lt TCAR 09/14/23. HISTORY: Hypertension. Hyperlipidemia. Afib. COMPARISONS: The previous exam was completed on 09/15/23 & 08/02/23. Measurements: Right ?Value ? Left ? Value RT Prox CCA PSV ?105 cm/sec ?LT Prox CCA PSV ?98 cm/sec RT Prox CCA EDV ?13 cm/sec ? LT Prox CCA EDV ?24 cm/sec RT Distal CCA PSV ?88 cm/sec ? LT Distal CCA PSV ?69 cm/sec RT Distal CCA EDV ?15 cm/sec ? LT Distal CCA EDV ?21 cm/sec RT Prox ICA PSV ?66 cm/sec ? LT Prox ICA PSV ?59 cm/sec RT Prox ICA EDV ?20 cm/sec ? LT Prox ICA EDV ?19 cm/sec RT Mid ICA PSV ? 68 cm/sec ? LT Mid ICA PSV ? 59 cm/sec RT Mid ICA EDV ? 24 cm/sec ? LT Mid ICA EDV ? 25 cm/sec RT Distal ICA PSV ?53 cm/sec ? LT Distal ICA PSV ?59 cm/sec RT Distal ICA EDV ?19 cm/sec ? LT Distal ICA EDV ?21 cm/sec RT ECA Prx PSV ? 66 cm/sec ? LT ECA Prx PSV ? 135 cm/sec RT ICA/CCA ? 0.75 ratio ?LT ICA/CCA ? 0.86 ratio Rt Vert Dst PSV ?48 cm/sec ? Lt Vert Dst PSV ?43 cm/sec - FINDINGS: Rt Common Carotid Artery: Duplex imaging of the right common carotid artery is within normal limits without evidence of atherosclerotic disease. Rt Internal Carotid Artery: The plaque in the right internal carotid artery appears to be heterogeneous and smooth. Atherosclerotic changes of the right internal carotid artery without hemodynamically significant Doppler findings. <50% stenosis. Rt External Carotid Artery: The right external carotid artery is patent without evidence of atherosclerotic plaque. Rt Vertebral Artery: The right vertebral artery is patent with antegrade flow. Lt Common Carotid Artery: Duplex imaging of the left common carotid artery is within normal limits without evidence of atherosclerotic disease. Lt Internal Carotid Artery: The plaque in the left internal carotid artery appears to be heterogeneous and smooth. Atherosclerotic changes of the left internal carotid artery without hemodynamically significant Doppler findings. <50% stenosis. Lt External Carotid Artery: The left external carotid artery is patent without evidence of atherosclerotic plaque. Lt Vertebral Artery: The left vertebral artery is patent with antegrade flow. Comments: Brachial artery systolic blood pressure is 124 on the right, 114 on the left. The stented left Internal Carotid Artery is patent and throughout the stent a maximum peak systolic velocity 59 cm/sec, an end diastolic velocity of 19 cm/sec, stented ICA/CCA ratio 0.86. CONCLUSIONS: 1. The right internal carotid artery disease is consistent with a less than 50% stenosis. 2. The left internal carotid artery disease is consistent with a less than 50% stenosis. 3. Left internal carotid artery stent is patent. ATTESTATION: I have reviewed and interpreted the pertinent images and measurements of this study. I attest to the conclusions in the final report that is provided above. Electronically Signed By: Kesha Longoria MD [facility] 2024-01-29 13:44:41 SERVICE GIRL Procedure Note Kesha Longoria MD - 01/29/2024 Vascular & Vein Surgery [address] 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 INDICATIONS: S/P Lt TCAR 09/14/23. HISTORY: Hypertension. Hyperlipidemia. Afib. COMPARISONS: The previous exam was completed on 09/15/23 & 08/02/23. Measurements: Right Value Left Value RT Prox CCA PSV 105 cm/sec LT Prox CCA PSV 98 cm/sec RT Prox CCA EDV 13 cm/sec LT Prox CCA EDV 24 cm/sec RT Distal CCA PSV 88 cm/sec LT Distal CCA PSV 69 cm/sec RT Distal CCA EDV 15 cm/sec LT Distal CCA EDV 21 cm/sec RT Prox ICA PSV 66 cm/sec LT Prox ICA PSV 59 cm/sec RT Prox ICA EDV 20 cm/sec LT Prox ICA EDV 19 cm/sec RT Mid ICA PSV 68 cm/sec LT Mid ICA PSV 59 cm/sec RT Mid ICA EDV 24 cm/sec LT Mid ICA EDV 25 cm/sec RT Distal ICA PSV 53 cm/sec LT Distal ICA PSV 59 cm/sec RT Distal ICA EDV 19 cm/sec LT Distal ICA EDV 21 cm/sec RT ECA Prx PSV 66 cm/sec LT ECA Prx PSV 135 cm/sec RT ICA/CCA 0.75 ratio LT ICA/CCA 0.86 ratio Rt Vert Dst PSV 48 cm/sec Lt Vert Dst PSV 43 cm/sec - FINDINGS: Rt Common Carotid Artery: Duplex imaging of the right common carotidartery is within normal limits without evidence of atherosclerotic disease. Rt Internal Carotid Artery: The plaque in the right internal carotidartery appears to be heterogeneous and smooth. Atherosclerotic changes of the right internalcarotid artery without hemodynamically significant Doppler findings. <50% stenosis. Rt External Carotid Artery: The right external carotid artery is patentwithout evidence of atherosclerotic plaque. Rt Vertebral Artery: The right vertebral artery is patent with antegradeflow. Lt Common Carotid Artery: Duplex imaging of the left common carotid arteryis within normal limits without evidence of atherosclerotic disease. Lt Internal Carotid Artery: The plaque in the left internal carotid arteryappears to be heterogeneous and smooth. Atherosclerotic changes of the left internalcarotid artery without hemodynamically significant Doppler findings. <50% stenosis. Lt External Carotid Artery: The left external carotid artery is patentwithout evidence of atherosclerotic plaque. Lt Vertebral Artery: The left vertebral artery is patent with antegradeflow. Comments: Brachial artery systolic blood pressure is 124 on the right, 114on the left. The stented left Internal Carotid Artery is patent and throughout thestent a maximum peak systolic velocity 59 cm/sec, an end diastolic velocity of 19 cm/sec,stented ICA/CCA ratio 0.86. CONCLUSIONS: 1. The right internal carotid artery disease is consistent with a lessthan 50% stenosis. 2. The left internal carotid artery disease is consistent with a less than50% stenosis. 3. Left internal carotid artery stent is patent. ATTESTATION: I have reviewed and interpreted the pertinent images and measurements ofthis study. I attest to the conclusions in the final report that is provided above. Electronically Signed By: Kesha Longoria MD [facility] 2024-01-29 13:44:41 SERVICE GIRL Kesha Longoria MD [facility] PROCEDURES Final Result * eGFR (09/15/2023 2:17 AM CDT) [facility] Signature eGFR >90 >=60 mL/min/1. 73 m2 Comment: Interpretive Data Reference Interval Normal ?>/= 90 mL/min/1.73m2 Mildly decreased* ? 60 - 89 mL/min/1.73m2 Mildly to moderately decreased ?45 - 59 mL/min/1.73m2 Moderately to severely decreased ??30 - 44 mL/min/1.73m2 Severely decreased ?15 - 29 mL/min/1.73m2 Kidney Failure ?< 15 ??mL/min/1.73m2 *Relative to young adult level Estimated glomerular filtration rate is determined by the 2020 CKD-EPI equation recommended by the National Kidney Foundation (A Unifying Approach to GFR Estimation: Recommendations of the NKF-ASK Task Force on Reassessing the Inclusion of Race in Diagnosing Kidney Disease, JASN 2020). The CKD-EPI equation should not be used for patients with unstable renal function and has not been validated in children and those over 70. Current interpretive data was last reviewed 2021. Blood 09/15/2023 2:17 AM CDT 09/15/2023 2:19 AM CDT Lakshmi Hercules NP LAB BLOOD ORDERABLES Ludmila l Result Performing Organization Address [facility] [email or web address]] Co de Phone Number [address] [place] [address] * (ABNORMAL) Hemoglobin A1c (09/01/2023 2:20 PM CDT) Hgb A1C 8.1(H) 4.0 - 5.6 % Estimated Average Glucose 186 mg/dL [facility] Comment: The ADA recommends reporting an estimated Average Glucose (eAG) with all Hemoglobin A1c results using the equation derived from a study of 507 normal and diabetic adults. ??Minority populations were underrepresented and children were not included. ?? (Diabetes Care 31:6255-1168, 2008). ??The eAG is not equivalent to a fasting glucose. Blood 09/01/2023 2:20 PM CDT 09/01/2023 2:28 PM CDT Kesha Longoria MD LAB BLOOD ORDERABLES Final Resul t Performing Organization Address [facility] [[email or web address]] Co de Phone Number [address] [place] [address] * POCT lipid panel (11/09/2022 11:48 AM CDT) Cholesterol, POC 139 mg/dL Comment:GLU = 327 HDL, POC 22 mg/dL Triglycerides, POC 447 mg/dL LDL Cholesterol POC N/A mg/dL Chol/HDL Ratio, POC 6.4 Non-HDL Cholesterol, POC 118 mg/dL Cholesterol Total, POC 139 mg/dL Capillary blood 11/09/2022 1 1:48 AM CDT Abdi East MD POINT OF CARE TEST ORDER MIGUEL Final Result from Last 3 Months or Most Recently Relevant to Health Maintenance Insurance MEDICARE MEDICARE COMMERCIAL GENERIC MEDICARE COMMERCIAL GENERIC Advance Directives For more information, please contact: [phone] * Full Code (Latest Code Status on File) Date Activated Date Inactivated Comments 09/14/2023 12:21 PM 09/15/2023 3:17 PM Care Teams Revival Clerk Relationship Specialty Start Date End Date Yimi Vogel MD PCP - General 10/23/07 Abdi East MD [address] [address] Consulting Physician Cardiovascular Disease 09/01/23
--- OUTSIDE RECORDS SUMMARY | 2024-04-02 14:48 | XMS_ITS | Encounter Summary ---
Author Organization [facility] Healthcare Address [address] [place] [address] Care Team Providers Care Banana Ripening Room Supervisor Name Role Phone Yimi Vogel MD Primary Care Provider [phone] Abdi East MD Unavailable [phone] Encounter Details Date Type Department Care Team (Late st Contact Info) Description 03/21/2023 Orders Only [facility] Health Information Management [address] [place] [id number] Scanning, Provider Social History Tobacco Use Types Packs/Day Years Used Date Smoking Tobacco: Never Personal Safety Answer Date Recorded Getting School Help Needed Not on file 02/28 Sex and Gender Information Value Date Recorded Sex Assigned at Not on file Legal Sex Male 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 Gender Identity Not on file Sexual Orientation Not on file documented as of this encounter Plan of Treatment Not on file documented as of this encounter Procedures Procedure Name Priority Date/Time Associated Diagnosis Comments SCAN - LABS 03/21/2023 9:28 PM FRUIT PRESERVER CARDIOLOGY DOCUMENT SCAN 03/20/2023 documented in this encounter Results * SCAN - LABS (03/21/2023 9:28 PM FRUIT PRESERVER) us Provider Scanning Final Result * Cardiology Document Scan (03/20/2023) Anatomical Region Laterality Modality Other us Provider Scanning [facility] PROCEDURES Final Result documented in this encounter Visit Diagnoses Not on filedocumented in this encounter Care Teams Banana Ripening Room Supervisor Relationship Specialty Start Date End Date Yimi Vogel MD PCP - General 10/23/07 Abdi East MD [address] [address] Consulting Physician Cardiovascular Disease 09/01/23 documented as of this encounter
--- OUTSIDE RECORDS SUMMARY | 2024-04-02 14:48 | XMS_ITS | Referral Summary ---
Author Organization [address] Address [address] [place] [phone] Care Team Providers Care Dry Pan Charger Name Role Phone Yimi Vogel MD Primary Care Provider [phone] Abdi East MD Unavailable [phone] Encounters Date Type Department Care Team Description 02/07/2024 Orders Only [facility] Medical [facility] Vascular and Vein Surgery [address] [facility] [address] [place] [phone] Kesha Longoria MD Aftercare following surgery of the circulatory system (Primary Dx); Stenosis of left carotid artery 02/07/2024 9:45 AM MEDICAL SCIENTIST Office Visit [facility] Vascular at [address] [place] [phone] Jody Simon NP Carotid stenosis, left (Primary Dx); Mixed hyperlipidemia; Primary hypertension; Paroxysmal atrial fibrillation (CMS/HCC) (HCC) 01/29/2024 10:00 AM MEDICAL SCIENTIST Ancillary Procedure [facility] Vascular and Vein Surgery at [address] [place] [phone] Aftercare following surgery of the circulatory system from Last 3 Months Allergies Active Allergy Reactions Criticality Noted Date [...] mg total) by mouth daily 30 tablet 4 08/23/19 25 Active clopidogreL (PLAVIX) 75 mg tablet Take 1 tablet (75 mg total) by mouth daily 30 tablet 4 08/28/19 25 Active UNABLE TO FIND Take [...] 02/08/2024 Assessment & Plan (02/08/2024 2:40 PM MEDICAL SCIENTIST): Impression: Chronic stable. Plan: Continue hydrochlorothiazide, lisinopril, Carotid stenosis, left 08/23/2023 Assessment & Plan (02/08/2024 2:37 PM MEDICAL SCIENTIST): Impression: Patient is status post left TCAR [...] 08/02/2023 Assessment & Plan (02/08/2024 2:39 PM MEDICAL SCIENTIST): Impression: Chronic and stable. Plan: Continue rosuvastatin. Assessment & Plan (08/25/2023 1:04 PM CDT): Stable continue Crestor 40 mg. Assessment & Plan (08/02/2023 9:35 AM CDT): Stable continue Crestor 40 mg Paroxysmal atrial fibrillation ([facility]) 023 Assessment & Plan (02/08/2024 2:37 PM MEDICAL SCIENTIST): Impression: Chronic and currently rate controlled. Plan: [...] and CTA head and neck imaging from [facility]. Continue risk factor modification with ASA statin therapy and good blood pressure control. Pending evaluation of his CT and MRI he may need left ICA TCAR versus CEA. We will follow up in 2-3 weeks Social History Tobacco Use Types Packs/Day Years Used Date Smoking Tobacco: Never Smokeless Tobacco: Never Tobacco Cessation:Counseling Given: Not Answered [facility] eventuosityities Answer Date Recorded In the past 12 months has e [employer], gas, oil, or water [employer] threatened to shut off services in your [...] often do you attend chur ch or nondenominational services? Never 09/15/2023 Do you belong to any clubs o r organizations such as hindu groups, unions, fraternal or athletic groups, or [...] any time in the past 12 m [facility], were you homeless or living in a custodial (including now)? No 09/15/2023 Personal Safety Answer Date Recorded Have you ever been in or are you currently in a harmful physical or emotional relationship or is someone making you feel afraid or unsafe? Denies 09/14/2023 Sex and Gender Information Value Date Recorded Sex Assigned at Not on file Legal Sex Male 8:58 AM MEDICAL SCIENTIST Gender Identity Not on file Sexual Orientation Not on file Last Filed Vital Signs Vital Sign Reading Time Taken Comments Blood Pressure 113/72 02/07/2024 9:48 AM MEDICAL SCIENTIST Pulse 81 02/07/2024 9:48 AM MEDICAL SCIENTIST Temperature 36.6 ??C (97.8 ??F) 09/15/2023 7:00 AM CD T Respiratory Rate 17 09/15/2023 10:33 AM CDT Oxygen Saturation 98% 02/07/2024 9:48 AM MEDICAL SCIENTIST Inhaled Oxygen Concentration - - Weight 105.2 kg (232 lb) 02/07/2024 9:48 AM MEDICAL SCIENTIST Height 180.3 cm (5' 11 ) 02/07/2024 9:48 AM MEDICAL SCIENTIST Body Mass Index 32.36 02/07/2024 9:48 AM MEDICAL SCIENTIST Plan of Treatment Not on file Medical Devices Implanted Type Area It Help Desk Analyst Device Identifier Shelf Expiration Date Model / Serial / Lot Aionex Enroute [employer] Flex 9mm .078in 40mm 57cm Delivery System Angle Tip [id number] - [id number] Implanted:Qty: 1 on 09/14/2023 by Kesha Longoria MD at [facility] Left: Common Carotid Artery [employer] [id number] 12/03/2025 SR-0940-[id number] S / / [id number] Procedures Procedure Name Priority Date/Time Associated Diagnosis Comments US CAROTIDS DUPLEX BILATERAL Schedule Routine, Read Routine (OP Routine) 01/29/2024 10:23 AM MEDICAL SCIENTIST Aftercare following surgery of the circulatory system [...] US Carotids Duplex Bilateral (01/29/2024 10:23 AM MEDICAL SCIENTIST) Anatomical Region Laterality Modality Vascular Bilateral Ultrasound 01/29/2024 9:59 AM MEDICAL SCIENTIST Narrative 01/29/2024 1:45 PM MEDICAL SCIENTIST Vascular & Vein Surgery [address] [place] [address]. [place] [address] Carotid Duplex Ultrasound Report Patient Name: MARIPOSA WILEY RO : 1955 (68y 8m) Study Date: 01/29/2024 9:59:27 AM Gender: M Reports Developer: Location: [facility] Ref Provider: KESHA LONGORIA Quality: [...] above. Electronically Signed By: Kesha Longoria MD [facility] 2024-01-29 13:44:41 MEDICAL SCIENTIST Procedure Note Kesha Longoria MD - 01/29/2024 Vascular & Vein Surgery [address] [facility] [place] [address] Carotid Duplex Ultrasound Report Patient Name: MARIPOSA WILEY RO : 1955 (68y 8m) Study Date: 01/29/2024 9:59:27 AM Gender: M Reports Developer: Location: [facility] Ref Provider: KESHA LONGORIA Quality: [...] above. Electronically Signed By: Kesha Longoria MD [facility] 2024-01-29 13:44:41 MEDICAL SCIENTIST Kesha Longoria MD [facility] PROCEDURES Final Result * eGFR (09/15/2023 2:17 AM CDT) [facility] Signature eGFR >90 >=60 mL/min/1. 73 m2 [...] 2:17 AM CDT 09/15/2023 2:19 AM CDT us Lakshmi Hercules NP LAB BLOOD ORDERABLES Ludmila rivas Result [facility] [address] [facility] Department [place] [address] * (ABNORMAL) Hemoglobin A1c (09/01/2023 2:20 PM CDT) Hgb A1C 8.1(H) 4.0 - 5.6 % Estimated Average Glucose 186 mg/dL [facility] Comment: The ADA recommends reporting an estimated Average Glucose (eAG) with all Hemoglobin A1c results using the equation derived from a study of 507 normal and diabetic adults. ??Minority populations were underrepresented and children were not included. ?? (Diabetes Care 31:6691-8381, 2008). ??The eAG is not equivalent to a fasting glucose. Blood 09/01/2023 2:20 PM CDT 09/01/2023 2:28 PM CDT Kesha Longoria MD LAB BLOOD ORDERABLES Final Resul t [facility] [address] [facility] Department [place] [address] * POCT lipid panel (11/09/2022 11:48 AM [...] Recently Relevant to Health Maintenance [place] [address] MEDICARE COMMERCIAL GENERIC MEDICARE COMMERCIAL GENERIC Advance Directives For more information, please contact: [phone] * Full Code (Latest Code Status on File) Date Activated Date Inactivated Comments 09/14/2023 12:21 PM 09/15/2023 3:17 PM Care Teams Dry Pan Charger Relationship Specialty Start Date End Date Yimi Vogel MD PCP - General 10/23/07 Abdi East MD [address] [address] Consulting Physician Cardiovascular Disease 09/01/23
--- OUTSIDE RECORDS SUMMARY | 2024-04-02 14:48 | XMS_ITS | Clinical Summary ---
Author Organization [facility] Address [address] [place] [address]. [place] [address] [place] [address] Care Team Providers Care Housing Property Manager Name Role Phone Yimi Vogel MD Primary Care Provider [phone] Allergies Active Allergy Reactions Criticality Noted Date Comments Sitagliptin Unknown 09/14/2020 Medications hydrochlorothia zide 25 MG tablet Take 1 tablet (25 mg total) by mouth every morning. Active citalopram 40 MG tablet Take 1 tablet (40 mg total) by mouth daily. Active metFORMIN 500 MG tablet Take 4 tablets (2,000 mg total) by mouth 2 (two) times daily with meals. Active aspirin 81 MG chewable tablet Chew 1 tablet (81 mg total) by mouth daily. Active glimepiride 1 MG tablet Take 1 tablet (1 mg total) by mouth 2 (two) times daily before meals. Active ELIQUIS 5 MG tablet Take 1 tablet (5 mg total) by mouth 2 (two) times daily. 05/29/2023 Active clopidogrel (PLAVIX) 75 MG tablet Take 1 tablet (75 mg total) by mouth daily. 08/28/2023 Active Vitamin D3 (VITAMIN D) 50 mcg tablet Take 2 tablets (4,000 Units total) by mouth daily. Active Active Problems Problem Noted Date Diagnosed Date Hyperlipidemia 10/16/2018 Hypertension 10/15/2018 Type 2 diabetes mellitus ([facility]/HCC) 10/15 Resolved Problems Problem Noted Date Diagnosed Date Resolved Date Chest pain 10/15/2018 10/16/2018 Family History Medical History Relation Comments Heart Disease Brother Diabetes Mother Heart Disease Mother Relation Status Comments Brother Mother Social History Tobacco Use Types Packs/Day Years Used Date Smoking Tobacco: Never Smokeless Tobacco: Never Alcohol Use Standard Drinks/Week Comments Not Currently 10 (1 standard drink = 0.6 oz pu re alcohol) occasionally Sex and Gender Information Value Date Recorded Sex Assigned at Not on file Legal Sex Male 5:47 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 Gender Identity Not on file Sexual Orientation Not on file Last Filed Vital Signs Vital Sign Reading Time Taken Comments Blood Pressure 129/77 09/25/2023 9:37 AM CDT Pulse 59 09/25/2023 9:37 AM CDT Temperature 36.1 ??C (97 ??F) 09/25/2023 9:37 AM CDT Respiratory Rate 17 09/25/2023 9:37 AM CDT Oxygen Saturation 100% 09/25/2023 9:37 AM CDT Inhaled Oxygen Concentration - - Weight 95.7 kg (211 lb) 09/22/2023 11:18 AM CDT Height 180.3 cm (5' 11 ) 09/22/2023 11:18 AM CDT Body Mass Index 29.43 09/22/2023 11:18 AM CDT Plan of Treatment Health Maintenance Due Date Last Done Comments Colorectal Cancer Screening Colonoscopy (10 Years) 1955 Kidney Health Evaluation 1955 Pneumococcal Vaccine: 65+ Years (1 of 2 - PCV) 05/29/1959 PHQ-2 (Physician [place]) 1965 Diabetes: Retinopathy Eye Exam 05/29/1971 Hepatitis C 05/29/1971 DTaP, Tdap and Td Vaccines ( 1 - Tdap) 1972 Annual Medicare Wellness Visit 2018 Zoster Vaccines (2 of 2) 07/25/2022 05/30/2022 COVID-19 Vaccine (4 - 2023-2 5 season) 2023 03/02/2021, 06/02/2020, 05/12/2020 Lipid Panel 11/10/2023 11/09/2022, 10/16/2018, 10/16/2018 Influenza Adult (#1) 2023 01/13/2015, 01/15/2014, 01/02/2013 Hemoglobin A1C 03/02/2024 09/01/2023 PHQ-2 (Physician [place]) 03/06/2024 RSV Immunization or 60+ Years (1 - 1-dose 75+ series) 2028 Meningococcal B Vaccine Aged Out No l onger eligible based on patient's age to complete this topic Meningococcal Vaccine Aged Out No rochelle margie eligible based on patient's age to complete this topic RSV Immunizations Under 20 Months Aged Out No longer eligible b ased on patient's age to complete this topic Medical Devices Implanted Type Area Clay Carman Device Identifier Shelf Expiration Date Model / Serial / Lot Technis Simplicity Iol Implanted:Qty: 1 on 09/25/2023 by Lisa Potts MD at [facility] Right: Eye 08/28/2025 [id number] / [id number] / [id number] Procedures Procedure Name Priority Date/Time Associated Diagnosis Comments LIPID PANEL Routine 10/16/2018 5:38 AM CDT from Last 3 Months or Most Recently Relevant to Health Maintenance Results * (ABNORMAL) LIPID PANEL (10/16/2018 5:38 AM CDT) CHOLESTEROL 235(H) <200 MG/DL 10/16/2018 6:48 AM CDT [facility] Comment: THE NATIONAL LIPID ASSOCIATION AND THE NATIONAL CHOLESTEROL EDUCATION PROGRAM (NCEP) HAVE SET THE FOLLOWING GUIDELINES FOR TOTAL CHOLESTEROL IN ADULTS AGES 18 AND UP. DESIRABLE: <200 BORDERLINE HIGH: 200-239 HIGH: > OR = 240 TRIGLYCERIDES 498(H) <150 MG/DL 10/16/2018 6:48 AM CDT [facility] Comment: THE NATIONAL LIPID ASSOCIATION AND THE NATIONAL CHOLESTEROL EDUCATION PROGAM (NCEP) HAVE SET THE FOLLOWING GUIDELINES FOR TRIGLYCERIDES IN ADULTS AGES 18 AND UP. NORMAL: <150 BORDERLINE HIGH: 150 TO 199 HIGH: 200 TO 499 VERY HIGH: >499 HDL 30(L) >39 MG/DL 10/16/2018 6:48 AM CDT [facility] Comment: THE NATIONAL LIPID ASSOCIATION AND THE NATIONAL CHOLESTEROL EDUCATION PROGAM (NCEP) HAVE SET THE FOLLOWING GUIDELINES FOR HDL CHOLESTEROL IN ADULTS AGES 18 AND UP. MALES: >39 FEMALES: >49 LDL (CALCULATED) TRIGLYCERIDES >400 MG/DL, SEE DIRECT LDL REPORT <100 MG/DL 10/16/2018 6:48 AM CDT [facility] Comment: THE NATIONAL LIPID ASSOCIATION AND THE NATIONAL CHOLESTEROL EDUCATION PROGAM (NCEP) HAVE SET THE FOLLOWING GUIDELINES FOR LDL CHOLESTEROL IN ADULTS AGES 18 AND UP. DESIRABLE: <100 ABOVE DESIRABLE: 100 TO 129 BORDERLINE HIGH: 130 TO 159 HIGH: 160 TO 189 VERY HIGH: >189 VLDL CALCULATION CALCULATION NOT VALID, TRIG >400 MG/DL 10/16/2018 6:48 AM CDT [facility] Comment:REFERENCE RANGE NOT ESTABLISHED CHOL/HDL RATIO 7.8 10/16/2018 6:48 AM CDT [facility] Comment:REFERENCE RANGE NOT ESTABLISHED LDL/HDL CALCULATION NOT VALID, TRIG >400 10/16/2018 6:48 AM CDT [facility] Comment:REFERENCE RANGE NOT ESTABLISHED NON HDL CHOLESTEROL 205 MG/DL 10/16/2018 6:48 AM CDT [facility] Comment:REFERENCE RANGE NOT ESTABLISHED 10/16/2018 5:38 AM CDT Rosemary Alex NP LABORATORY Final Result [facility] [address] [place] [address], from Last 3 Months or Most Recently Relevant to Health Maintenance Insurance MEDICARE GENERIC - COMMERCIAL MEDICARE GENERIC - COMMERCIAL Advance Directives * Full Code (Latest Code Status on File) Date Activated Date Inactivated Comments 10/15/2018 1:25 PM 10/16/2018 4:05 PM Care Teams Housing Property Manager Relationship Specialty Start Date End Date Yimi Vogel MD [address] [address] PCP - General FAMILY PRACTICE 10/15/18
== END 2024-04-02 14:11 | disposition home or self-care (01) ==
PROVIDERS: PCP Family Medicine; Visit Provider Podiatrist Foot & Ankle Surgery
DX: M19.071 Primary osteoarthritis, right ankle and foot (principal); L89.899 Pressure ulcer of other site, unspecified stage
CPT/HCPCS: 73630